=== PATIENT | male | born 1940 | race Caucasian/White ===

== ENCOUNTER 2021-04-24 15:20 | Outpatient (CLI) | payer MEDICARE, SELFPAY ==
--- NOTE | ~2021-04-24 | XR_ITS ---
XR chest 2V 04/24/2021 15:40 Indication: Cough Procedure: 2 view chest Comparison: 02/04/2009 Findings: Status post median sternotomy for CABG. Heart size normal. No focal air space disease, pulm onary edema, pleural effusion or suspected pneumothorax. The lungs are hyperinflated which is consist ent with, but not diagnostic of chronic obstructive pulmonary disease. Impression: 1: No acute cardiopulmonary disease. Reviewed, dictated and finalized at location B. OR SOFTWARE ANALYST Impression: 1: No acute cardiopulmonary disease.
== END 2021-04-24 15:21 | disposition home or self-care (01) ==
PROVIDERS: PCP Internal Medicine; Visit Provider Internal Medicine
DX: R05.9 Cough, unspecified (principal); Z95.1 Presence of aortocoronary bypass graft
CPT/HCPCS: 71046

== ENCOUNTER → 2022-03-04 14:49 | Outpatient (CLI) | payer MEDICARE, SELFPAY ==
--- NOTE | ~2022-03-04 | MR_ITS ---
EXAMINATION: MR lumbar spine wo/w con DATE: 03/04/2022 15:37 INDICATION: Acute onset right-sided low back pain with right-sided sciatica TECHNIQUE: Magnetic resonance imaging (MRI) of the lumbar spine was performed without and with 15 mL Multihance intravenous contrast. Sequences included sagittal T2-weighted FSE, sagittal T2-weighted FS FSE, and sagittal and axial T1-weighted FSE. Postcontrast sequences included axial T2-weighted FSE, sagittal T1-weighted FSE, and axial and sagittal T1-weighted FS FSE. COMPARISON: None FINDINGS: 25 degrees thoracolumbar dextroscoliosis. 2 mm retrolisthesis T11 and T12 and T12 on L1. 4 mm retroli sthesis L5 on S1. There is mild right-sided vertebral body height loss at L4 and L5 without evident f racture line which is more likely related to chronic endplate remodeling rather than discrete edna dilcia fracture. Vertebral body heights are otherwise normal with Schmorl's nodes along several of the endplates in the lumbar and lower thoracic spine. T1 hyperintense hemangiomas at the left pedicle of L3 and L1 spinous process which corresponds to lucent lesion along prior CT. Severe disc height loss at L5-S1, the right side of L4-L5 and left side of T11-T12 through L1-L2. Moderate left-sided predomi nant disc height loss at L3-L4 and mild disc height loss at L2-L3. There is associated enhancing and T2 hyperintense fibrovascular degenerative endplate changes at L4-L5 with additional Modic type III c hronic endplate changes at this level evident on prior CT. The conus medullaris terminates at L1. The re is normal signal in the caudal spinal cord. There is hypertrophy of the ligamentum flavum from T12 -L1 through L4-L5. Severe atrophy of the mid to lower right kidney. Paravertebral soft tissues are un remarkable. The following disc levels are specifically discussed: T12-L1: Disc is bulging. There is moderate bilateral facet joint osteoarthritis. There is mild right and moderate to severe left neural foraminal stenosis. There is mild central canal stenosis. L1-L2: Disc is bulging with annular fissure. There is moderate left and severe right facet joint oste oarthritis. There is mild right and moderate left neural foraminal stenosis. There is mild central ca nal stenosis. L2-L3: Disc is mildly bulging. There is mild left and moderate right facet joint osteoarthritis. Ther e is mild left and moderate right neural foraminal stenosis. There is mild central canal stenosis. L3-L4: Disc is bulging. There is moderate left and severe right facet joint osteoarthritis. There is mild left and moderate right neural foraminal stenosis. There is mild central canal stenosis. L4-L5: Posterior disc osteophyte with annular fissure. There is severe bilateral facet joint osteoart hritis. There is mild left and moderate right neural foraminal stenosis. There is mild central canal stenosis. L5-S1: Posterior disc osteophyte complex with annular fissure and small central disc extrusion. There is severe bilateral facet joint osteoarthritis. There is moderate bilateral neural foraminal stenosi s. There is no central canal stenosis. IMPRESSION: 1. 25 degrees thoracolumbar dextroscoliosis with severe spondylosis. Reviewed, dictated and finalized at location A. LE CLEANER
== END ==
PROVIDERS: PCP Internal Medicine; Visit Provider Nurse Practitioner Family
DX: M47.815 Spondylosis without myelopathy or radiculopathy, thoracolumbar region (principal); M54.41 Lumbago with sciatica, right side; M41.9 Scoliosis, unspecified
CPT/HCPCS: 72158; A9577

== ENCOUNTER 2022-03-04 15:58 | Emergency (ER) | payer MEDICARE, SELFPAY ==
--- NOTE | ~2022-03-04 | CT_ITS ---
EXAMINATION: CT abdomen pelvis w con DATE: 03/04/2022 22:47 INDICATION: abdominal pain, TECHNIQUE: Computed tomography (CT) of the abdomen and pelvis was performed with 100 mL Omnipaque-350 intravenous contrast. Automated exposure control and iterative reconstruction technique were employe d. The dose-length product was 329.94 mGy-cm. COMPARISON: None. FINDINGS: Lower thorax: Bibasilar atelectasis/scar. Small hiatal hernia. Liver: Normal. Biliary/Gallbladder: Gallbladder is normal. No bile duct dilation. Pancreas: Prominent pancreatic duct, otherwise normal. Spleen: Normal. Adrenals:No mass. Kidneys: Severe right renal atrophy. Absent contrast enhancement of the right mid and lower pole. The re is residual contrast enhancement in the right upper pole, likely via an accessory renal artery whi ch is not well-visualized in this study. Simple right lower pole cyst. 12 mm indeterminate density ex ophytic right lower pole lesion. Mild cortical thinning and scarring in the left kidney. Multiple lef t renal hypodensities that are too small to characterize but most likely represent cysts. GI tract: No small or large bowel dilation. Normal appendix. Hypermobile cecum. Diverticulosis withou t diverticulitis. Mesentery/Peritoneum: No ascites, mass, or free air. Retroperitoneum: No mass. Atherosclerotic abdominal aortic and/or arterial calcifications. The right renal artery is dilated, calcified and likely occluded. Pelvis: Pelvic detail is obscured by metal artifact. Marked bladder distention, without wall thickeni ng, likely secondary to marked prostatomegaly. Soft Tissues: Soft tissues and body wall unremarkable. Bones: No acute osseous finding. Incompletely visualized, uncomplicated appearing hip arthroplasty. IMPRESSION: 1. Esophagitis/gastritis. 2. Prominent pancreatic duct, likely chronic, correlate with pancreatic labs. 3. 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 4. Indeterminate right lower pole lesion, consider nonemergent, outpatient MR or CT without and with contrast for further evaluation. 5. Marked bladder distention likely secondary to outlet compromise from significant prostatomegaly. Reviewed, dictated and finalized at location K. RT SALES ASSISTANT IMPRESSION: 1. Esophagitis/gastritis. 2. Prominent pancreatic duct, likely chronic, correlate with pancreatic labs. 3. 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 4. Indeterminate right lower pole lesion, consider nonemergent, outpatient MR o r CT without and with contrast for further evaluation. 5. Marked bladder distention likely secondary to outlet compromise from signifi cant prostatomegaly.
[2022-03-04 16:11] VITALS: BP 154/103; PULSE 117; RESP 16; TEMP 36.4; O2SAT 98
[2022-03-04 18:36] LABS: Appearance Urine Clear (Clear); Bacteria Urine Trace /hpf; Bilirubin Urine Negative (Negative); Blood Urine Negative (Negative); Color Urine Yellow (Yellow); Glucose Urine UA Negative (Negative); Ketones Urine Negative (Negative); Leukocyte Esterase Ur Negative LEU/UL (Negative); Nitrate Urine Negative (Negative); Protein Urine Negative (Negative); Specific Grav Ur 1.015 (1.001-1.035); Squamous Epithelial Cell Urine Rare /hpf (Few); Urobilinogen Urine 0.2 mg/dL (<2.0)
[2022-03-04 18:38] LABS: Add Urine Microscopic? NO
--- NOTE | 2022-03-04 21:09 | ED.GENADULT ---
HPI - General Adult General Chief complaint: Abdominal Pain Stated complaint: constipation History of Present Illness HPI narrative: Patient 81-year-old gentleman who presents emergency department with chief complaint of constipation and urinary retention. Patient reports that he has been having issues with urinating since last month patient reports has been having back pain issues and actually had an outpatient MRI done today. Patient reports that he has done oral laxatives and also has done suppositories he did have a large bowel movement after doing 3 suppositories but still feels as though he is constipated. Patient reports that he has been able to manually remove some of the stool from his rectum and reports that he is not fully emptying his bladder. Related Data Allergies Allergy/AdvReac Type Severity Reaction Status Date / Time No Known Allergies Allergy Mild Verified 02/04/09 09:46 Review of Systems Review of Systems: A 10 system review of systems was completed on the patient and is negative except for what is stated in the HPI. Nursing and ancillary documentation was reviewed. Exam Narrative: GENERAL: Well-appearing, well-nourished, and in no acute distress. HEAD: Normocephalic, atraumatic. EYES: PERRLA and EOMI. ENT: Nares clear, no rhinorrhea or epistaxis. Mucous membranes moist. NECK: Supple. CHEST: Clear to auscultation. No respiratory distress. HEART: Regular rate and rhythm. No murmur heard. Normal peripheral pulses. ABDOMEN: Soft, nontender, nondistended, normal active bowel sounds. EXTREMITIES: Normal range of motion. No edema. SKIN: Warm, dry, no rash. NEURO: No focal deficits. Alert and oriented x3. PSYCH: Normal mood and affect. Course Vital Signs Vital signs: Vital Signs Temperature 36.4 C 03/04/22 16:11 Pulse Rate 117 H 03/04/22 16:11 Respiratory Rate 16 03/04/22 16:11 Blood Pressure 154/103 H 03/04/22 16:11 Pulse Oximetry 98 03/04/22 16:11 Oxygen Delivery Room Air 03/04/22 16:11 Temperature 36.8 C 03/04/22 23:47 Pulse Rate 89 03/04/22 23:47 Respiratory Rate 18 03/04/22 23:47 Blood Pressure 142/77 H 03/04/22 23:47 Pulse Oximetry 98 03/04/22 23:47 Oxygen Delivery Room Air 03/04/22 16:11 Medical Decision Making Vital Signs Vital Signs: Vital Signs Temperature 36.4 C 03/04/22 16:11 Pulse Rate 117 H 03/04/22 16:11 Respiratory Rate 16 03/04/22 16:11 Blood Pressure 154/103 H 03/04/22 16:11 Pulse Oximetry 98 03/04/22 16:11 Oxygen Delivery Room Air 03/04/22 16:11 Temperature 36.8 C 03/04/22 23:47 Pulse Rate 89 03/04/22 23:47 Respiratory Rate 18 03/04/22 23:47 Blood Pressure 142/77 H 03/04/22 23:47 Pulse Oximetry 98 03/04/22 23:47 Oxygen Delivery Room Air 03/04/22 16:11 Lab Data 03/04/22 21:16 03/04/22 21:16 Labs: Lab Results 03/04/22 03/04/22 03/04/22 Range/Units 17:56 21:16 21:16 WBC 6.6 (4.5-10.0) K/mm3 RBC 4.50 L (4.6-6.20) M/mm3 Hgb 13.7 L (14.0-18.0) g/dL Hct 40.4 L (42.0-52.0) % MCV 89.8 (80-100) fl MCH 30.4 (26-34) pg MCHC 33.9 (32-36) g/dl RDW 13.0 (11.5-14.5) % Plt Count 234 (150-375) k/mm3 MPV 8.8 (7.4-10.4) fl Immature Gran % (Auto) 0.3 (0-0.5) % Neut % (Auto) 63.0 (45.5-73.1) % Lymph % (Auto) 20.9 (18.3-44.2) % [place] % (Auto) 9.8 H (2.6-8.5) % Eos % (Auto) 5.2 H (0-4.4) % Baso % (Auto) 0.8 (0.2-1.2) % Lymph # (Auto) 1.37 (0.9-3.2) K/mm3 [place] # (Auto) 0.6 (0.1-0.6) K/mm3 Eos # (Auto) 0.3 (0-0.3) K/mm3 Baso # (Auto) 0.1 (0.0-0.1) K/mm3 Abs Immat Gran (auto) 0.02 (0.00-0.031) K/mm3 Absolute Neuts (auto) 4.1 (1.3-6.7) K/mm3 Absolute Nucleated RBC 0.0 (0.0-0.012) K/mm3 Nucleated RBC % 0.0 (0.0-0.2) % Sodium 132 L (137-145) mmol/L Potassium 4.7 (3.4-5.0) mmol/L Chloride 102 (98-107) mmol/L Carbon Dioxide 20 L (22-
[2022-03-04 21:26] LABS: Basophils Absolute Auto 0.1 K/mm3 (0.0-0.1); Basophils Percent Auto 0.8 % (0.2-1.2); Eosinophils Absolute Auto 0.3 K/mm3 (0-0.3); Eosinophils Percent Auto 5.2 % (0-4.4); Hematocrit 40.4 % (42.0-52.0); Hemoglobin 13.7 g/dL (14.0-18.0); Immature Granulocyte Absolute 0.02 K/mm3 (0.00-0.031); Immature Granulocyte Percent A 0.3 % (0-0.5); Lymphocytes Absolute Auto 1.37 K/mm3 (0.9-3.2); Lymphocytes Percent Auto 20.9 % (18.3-44.2); Mean Corpuscular HGB Conc 33.9 g/dl (32-36); Mean Corpuscular Hemoglobin 30.4 pg (26-34); Mean Corpuscular Volume 89.8 fl (80-100); Mean Platelet Volume 8.8 fl (7.4-10.4); Monocytes Absolute Auto 0.6 K/mm3 (0.1-0.6); Monocytes Percent Auto 9.8 % (2.6-8.5); Neutrophils Absolute Auto 4.1 K/mm3 (1.3-6.7); Platelet Count Result 234 k/mm3 (150-375); White Blood Count 6.6 K/mm3 (4.5-10.0)
[2022-03-04 21:35] LABS: Alanine Aminotransferase 22 U/L (6-50); Albumin Level 4.4 g/dL (3.5-5.1); Alkaline Phosphatase 72 U/L (38-126); Anion Gap 10 mmol/L (8-16); Aspartate Amino Transferase 31 U/L (17-59); Blood Urea Nitrogen 30 mg/dL (9-20); Calcium 9.4 mg/dL (8.4-10.2); Carbon Dioxide 20 mmol/L (22-30); Chloride 102 mmol/L (98-107); Estimated CRCL calculation 48 ml/min; Estimated Glomerular Filt Rate 58; Glucose 107 mg/dL (65-110); Lipase 119 U/L (23-300); Potassium 4.7 mmol/L (3.4-5.0); Sodium 132 mmol/L (137-145)
--- NOTE | 2022-03-04 23:42 | PC.NURSE ---
Patient states unable to urinate fully when urinating. Bladder scanner performed with greater than 999ml as results. 16fr pena catheter placed with clear yellow urine draining at this time. Residual amount of 600ml.
[2022-03-04 23:47] VITALS: BP 142/77; PULSE 89; RESP 18; TEMP 36.8; O2SAT 98
[2022-03-05 00:49] VITALS: BP 120/68; PULSE 84; RESP 18; TEMP 36.9; O2SAT 99
--- NOTE | 2022-03-05 00:52 | PC.NURSE ---
Patient switched from drainage bag to leg bag. Patient vocalized understanding of leg emptying and catheter care.
== END 2022-03-05 00:53 | disposition home or self-care (01) ==
PROVIDERS: Emergency Medicine; Emergency Provider Emergency Medicine; PCP Internal Medicine
DX: R33.9 Retention of urine, unspecified (principal); K20.90 Esophagitis, unspecified without bleeding; K29.70 Gastritis, unspecified, without bleeding; N28.9 Disorder of kidney and ureter, unspecified; N40.0 Benign prostatic hyperplasia without lower urinary tract symptoms; N28.0 Ischemia and infarction of kidney
CPT/HCPCS: 36415; 51702; 74177; 80053; 81003; 83690; 85025; 99284; Q9967

== ENCOUNTER 2022-12-05 14:03 | Emergency (ER) | payer OTHER, MEDICARE, SELFPAY ==
--- NOTE | ~2022-12-05 | CT_ITS ---
EXAMINATION: CT facial & cervical spine wo DATE: 12/05/2022 18:03 INDICATION: Head injury. TECHNIQUE: Computed tomography (CT) of the maxillofacial region and cervical spine was performed with out intravenous contrast. Automated exposure control and iterative reconstruction technique were empl oyed. The dose-length product was 417.37 mGy-cm. COMPARISON: None FINDINGS: MAXILLOFACIAL CT: There is frontal scalp soft tissue swelling. The orbits are normal. There is mild mucosal thickening left maxillary sinus. There is leftward deviation of the nasal septum. CERVICAL SPINE CT: There is mild scarring at the lung apices. There is a cluster of centrilobular nodules in right upper lobe, likely infection. The C1 ring is ununited posteriorly, a normal variant. There is 3 degrees de xtrocurvature of cervical spine. There is 2 mm anterolisthesis of C4 on C5 and C7 on T1. Vertebral deandre dy heights are normal. There is severely decreased disc height at C3-C4 and C4-C5, moderately decreas ed disc height at C5-C6, severely decreased disc height at C6-C7, and moderately decreased disc heigh t at C7-T1. The following disc levels are specifically discussed: C2-C3: There is no uncovertebral joint osteoarthritis. There is severe bilateral facet joint osteoart hritis. There is mild bilateral neural foraminal stenosis. There is no central canal stenosis. C3-C4: There is mild bilateral uncovertebral joint osteoarthritis. There is severe right and moderate left facet joint osteoarthritis. There is mild bilateral neural foraminal stenosis. There is mild ce ntral canal stenosis. C4-C5: There is severe bilateral uncovertebral joint osteoarthritis. There is severe bilateral facet joint osteoarthritis. There is mild bilateral neural foraminal stenosis. There is mild central canal stenosis. C5-C6: There is severe bilateral uncovertebral joint osteoarthritis. There is severe bilateral facet joint osteoarthritis. There is mild bilateral neural foraminal stenosis. There is mild central canal stenosis. C6-C7: There is severe bilateral uncovertebral joint osteoarthritis. There is severe bilateral facet joint osteoarthritis. There is mild right and moderate left neural foraminal stenosis. There is mild central canal stenosis. C7-T1: There is mild bilateral uncovertebral joint osteoarthritis. There is severe bilateral facet belle int osteoarthritis. There is mild bilateral neural foraminal stenosis. There is no central canal sten osis. IMPRESSION: 1. No fracture. 2. Severe cervical spondylosis. Reviewed, dictated and finalized at location E.
--- NOTE | ~2022-12-05 | CT_ITS ---
EXAMINATION: CT brain wo con DATE: 12/05/2022 18:03 INDICATION: Head injury. TECHNIQUE: Computed tomography (CT) of the head was performed without intravenous contrast. The mA wa s adjusted according to patient size. Iterative reconstruction technique was employed. The dose-lengt h product was 605.33 mGy-cm. COMPARISON: None FINDINGS: There is no intracranial hemorrhage, acute infarction, or abnormal intracranial mass lesion . There are scattered areas of low attenuation in the cerebral white matter. The ventricles are hermila l in size. There is mild mucosal thickening in the paranasal sinuses. The orbits are normal. The mast oid air cells are normal. There is frontal scalp soft tissue swelling. IMPRESSION: 1. Moderate nonspecific cerebral white matter disease, which likely represents chronic small vessel i schemic disease. Reviewed, dictated and finalized at location E. IMPRESSION: 1. Moderate nonspecific cerebral white matter disease, which likely represents chronic small vessel ischemic disease.
--- NOTE | ~2022-12-05 | XR_ITS ---
EXAMINATION: XR knee LT 3V DATE: 12/05/2022 17:41 INDICATION: Left knee injury. TECHNIQUE: 3 views of left knee were obtained. COMPARISON: None. FINDINGS: Bone alignment is normal. No fracture. Joint spaces are normal. There is chondrocalcinosis of the menisci. No knee joint effusion. There is anterior knee soft tissue swelling. IMPRESSION: 1. No fracture. Reviewed, dictated and finalized at location E. IMPRESSION: 1. No fracture.
--- NOTE | ~2022-12-05 | XR_ITS ---
EXAMINATION: XR elbow LT min 3V DATE: 12/05/2022 17:41 INDICATION: Left elbow injury. TECHNIQUE: 3 views of left elbow were obtained. COMPARISON: None. FINDINGS: Bone alignment is normal. No fracture. Joint spaces are normal. There are enthesophytes at medial and lateral humeral epicondyles. No elbow joint effusion. IMPRESSION: 1. No fracture. Reviewed, dictated and finalized at location E. IMPRESSION: 1. No fracture.
[2022-12-05 14:05] VITALS: BP 134/59; PULSE 86; RESP 18; TEMP 36.6; O2SAT 100
[2022-12-05] MEDS: ACETAMINOPHEN 500 MG TABLET 1000 MG PO (17:21)
--- NOTE | 2022-12-05 17:56 | ED.FALL ---
HPI - Fall General Chief Complaint: Fall Stated Complaint: fell Time Seen by Provider: 12/05/22 15:39 Source: patient and family Mode of arrival: ambulatory Limitations: no limitations History of Present Illness HPI Narrative: 82 years old white male came to the emergency room by private car with forehead contusion/abrasion, left knee pain left elbow pain after ground fall. Prior to arrival. Patient was getting out off his car tripped and fell forward on his face. Patient is on aspirin and Eliquis. No loss of consciousness, he denies other injuries. Related Data Home Medications Medication Instructions Recorded Confirmed allopurinol 300 mg tablet mg 12/05/22 apixaban 5 mg tablet (Eliquis) mg 12/05/22 aspirin 81 mg capsule 81 mg PO DAILY 12/05/22 12/05/22 folic acid 1 mg tablet 12/05/22 lisinopril 40 mg tablet mg 12/05/22 pravastatin 40 mg tablet mg 12/05/22 tamsulosin 0.4 mg capsule mg PO 12/05/22 Allergies Allergy/AdvReac Type Severity Reaction Status Date / Time levofloxacin [From Levaquin] AdvReac Nausea and Verified 12/05/22 15:02 Vomiting Review of Systems Review of Systems: All systems reviewed & are unremarkable except as noted in HPI and below Exam Narrative: General appearance: Well-developed, well-nourished Skin: Normal color Head: Forehead contusion, abrasion Eyes: Clear conjunctiva ENT: Oropharynx normal, ears normal, abrasion nasal bridge and left cheek Neck: Supple, nontender Chest and respiratory: Airway patent, no respiratory distress, no accessory muscle use Heart: Regular rate/rhythm Abdomen: Soft, nontender, no organomegaly, quiet bowel sounds Vascular: Normal peripheral pulses, normal capillary refill. Musculoskeletal: Abrasion left elbow, and left knee anteriorly, good range of motion. Neurologic: Alert and oriented ?3, VICE PRESIDENT [employer] is normal as tested, no gross motor deficit Course Reevaluation(s) Reevaluation #1: Feeling a little better after Tylenol p.o. Date: 12/05/22 Time: 18:01 Vital Signs Vital signs: Vital Signs Temperature 36.6 C 12/05/22 14:05 Pulse Rate 86 12/05/22 14:05 Respiratory Rate 18 12/05/22 14:05 Blood Pressure 134/59 L 12/05/22 14:05 Pulse Oximetry 100 12/05/22 14:05 Oxygen Delivery Room Air 12/05/22 14:05 Temperature 36.6 C 12/05/22 14:05 Pulse Rate 86 12/05/22 14:05 Respiratory Rate 18 12/05/22 14:05 Blood Pressure 134/59 L 12/05/22 14:05 Pulse Oximetry 100 12/05/22 14:05 Oxygen Delivery Room Air 12/05/22 14:05 MDM - Fall MDM Narrative Medical decision making narrative: Patient presents with the above complaint and Physical examination showed as above Differential diagnosis include and trauma cranial bleed, fracture, contusion, abrasion CT facial bones, head and cervical spine showed no acute abnormalities X-ray of the left elbow and left knee showed no acute abnormalities. Differential Diagnosis Differential diagnosis: Likely concussion without loss of consciousness and other (Contusion, abrasion, fracture) Medical Records Attestation: I reviewed the patient's medical records. Imaging Data Attestation: I personally reviewed and interpreted this imaging study as follows: My impression: Impressions Elbow X-Ray 12/05/22 17:43 IMPRESSION: 1. No fracture. Knee X-Ray 12/05/22 17:44 IMPRESSION: 1. No fracture. Head CT 12/05/22 18:08 IMPRESSION: 1. Moderate nonspecific cerebral white matter disease, which likely represents chronic small vessel ischemic disease. Head/Cervical Spine/Facial Bones CT 12/05/22 18:11 IMPRESSION: 1. No fracture. 2. Severe cervical spondylosis. Rad
[2022-12-05 18:19] VITALS: BP 132/78; PULSE 74; RESP 16; TEMP 36.8; O2SAT 100
[2022-12-05] MEDS: TETANUS,DIPHTHERIA,AC PERTUSSIS ADULT (0.5 ML) BOOSTRIX IM (18:23)
== END 2022-12-05 19:15 | disposition home or self-care (01) ==
PROVIDERS: Emergency Provider Emergency Medicine; PCP Internal Medicine
DX: S00.83XA Contusion of other part of head, initial encounter (principal); S50.02XA Contusion of left elbow, initial encounter; S00.81XA Abrasion of other part of head, initial encounter; S00.31XA Abrasion of nose, initial encounter; S80.212A Abrasion, left knee, initial encounter; Z23 Encounter for immunization; Z79.82 Long term (current) use of aspirin; Z79.01 Long term (current) use of anticoagulants; R90.82 White matter disease, unspecified; M47.812 Spondylosis without myelopathy or radiculopathy, cervical region; W01.0XXA Fall on same level from slipping, tripping and stumbling without subsequent striking against object, initial encounter
CPT/HCPCS: 70450; 70486; 72125; 73080; 73562; 90471; 90715; 99284; A9270